=== PATIENT | female | born 1990 | race Caucasian/White ===

== ENCOUNTER 2018-03-13 10:26 | Outpatient (CLI) ==
[2013-01-12 17:55] VITALS: TEMP 96.9
[2016-05-10 10:02] VITALS: BMI 32.3
--- NOTE | 2018-03-13 11:41 | US ---
EXAM: Thyroid ultrasound History: Difficulty swallowing. Technique: Multiple sonographic images through the thyroid gland were obtained. Color duplex Dopple r was used to interrogate vascular flow. Findings: The right lobe of the thyroid measures 5.3 cm x 0.9 cm x 1.5 cm and is without discrete nodule identi fied. The thyroid isthmus measures 0.2 cm in thickness. The left lobe of the thyroid measures 4.1 cm x 0.7 cm x 1.4 cm and is without discrete nodule identif ied. No extrathyroidal masses are identified. Thyroid gland is not significantly hypervascular. Impression: Normal thyroid ultrasound
== END 2018-03-13 10:27 | disposition home or self-care (01) ==
LOC: RAD 10:26
PROVIDERS: ATTEND Family Medicine
DX: R53.83 Other fatigue (principal); R13.10 Dysphagia, unspecified